=== PATIENT | female | born 1955 | race Asian ===

== ENCOUNTER 2017-07-05 12:54 | Emergency (ER) | payer OTHER ==
[~2017-07-05] VITALS: Ht 160 cm; Wt 60.8 kg
[2017-07-05 15:25] VITALS: BP 146/73; Ht 160 cm; Wt 60.8 kg
== END 2017-07-05 18:46 | disposition home or self-care (01) ==
LOC: ED 12:54
DX: J09.X2 Influenza due to identified novel influenza A virus with other respiratory manifestations (principal); B34.9 Viral infection, unspecified
CPT/HCPCS: 87804; J1885

== ENCOUNTER 2017-09-26 19:51 | Emergency (ER) | payer OTHER ==
[~2017-09-26] VITALS: Ht 152.4 cm; Wt 59.9 kg
[2017-09-26 19:54] VITALS: Ht 152.4 cm; Wt 59.9 kg
[2017-09-26 21:26] LABS: CALCIUM 9.1 mg/dL (8.5-10.1); CARBON DIOXIDE 30.3 mmol/L (21-32); CHLORIDE SERUM 101 mmol/L (98-107); CREATININE SERUM 0.8 mg/dL (0.6-1.0); GFR1 > 60 mL/min; GLUCOSE SERUM 131 mg/dL (74-106); POTASSIUM SERUM 3.3 mmol/L (3.5-5.1); SODIUM SERUM 142 mmol/L (136-145)
[2017-09-26 21:32] LABS: ALBUMIN 4.1 g/dL (3.4-5.0); ALKALINE PHOSPHATASE 71 U/L (46-116); ALT/SGPT 39 U/L (14-59); AMYLASE 80 U/L (25-115); AST/SGOT 25 U/L (15-37); BILIRUBIN TOTAL 0.19 mg/dL (0.20-1.00); LIPASE 155 IU/L (73-393); TOTAL PROTEIN, SERUM 8.8 g/dL (6.4-8.2)
[2017-09-26 21:33] LABS: BASOPHIL % 0.3 % (0-2); PLATELET COUNT 256 x10^3mcL (130-400); RED CELL DISTRIBUTION WIDTH 14.4 % (11.5-14.5)
[2017-09-26 21:38] LABS: microscopic required? YES; urine erythrocyte 2+ (NEGATIVE)
[2017-09-26 23:25] VITALS: BP 143/77
== END 2017-09-26 23:25 | disposition home or self-care (01) ==
LOC: ED 19:51
PROVIDERS: Emergency Medicine
DX: N13.4 Hydroureter (principal); N20.0 Calculus of kidney; I10 Essential (primary) hypertension
CPT/HCPCS: 83880; J1885; J7030